=== PATIENT | female | born 1970 | race Caucasian/White ===

== ENCOUNTER → 2017-05-18 | Outpatient (CLI) | payer OTHER, BC ==
--- NOTE | 2017-05-18 17:25 | DIAGNOSTIC IMAGING REPORT ---
SACRUM COCCYX MIN 2 VIEWS CLINICAL HISTORY: FALL trauma. Pain. COMPARISON STUDY: None FINDINGS: Nondisplaced oblique vertical fracture sacrococcygeal junction. Sacral foramina are symmetric. Sacroiliac joints are unremarkable. An intrauterine device is present. IMPRESSION: Nondisplaced oblique cortical fracture sacrococcygeal junction joint evidence for early healing The above report was generated using voice recognition software. It may contain grammatical, syntax or spelling errors. Electronically signed by: Jason Jones M.D. 05/18/2017 5:24 PM Dictated Date/Time: 05/18/2017 5:22 PM
--- NOTE | 2017-05-18 17:26 | DIAGNOSTIC IMAGING REPORT ---
L SHOULDER MIN 2 VIEWS ROUTINE CLINICAL HISTORY: FALL,LT SHOULDER PAIN trauma. Pain. COMPARISON: None. DISCUSSION: The bones and joint spaces appear intact. There is no evidence of fracture, dislocation or bony disease. There is no evidence for soft tissue swelling. IMPRESSION: Negative study. No acute process. Localized degenerative cystic change lateral aspect humeral head The above report was generated using voice recognition software. It may contain grammatical, syntax or spelling errors. Electronically signed by: Jason Jones M.D. 05/18/2017 5:25 PM Dictated Date/Time: 05/18/2017 5:24 PM
== END | disposition home or self-care (01) ==
LOC: C.RAD1850 16:30
PROVIDERS: ATTEND Nurse Practitioner Adult Health
DX: M53.3 Sacrococcygeal disorders, not elsewhere classified (principal); M25.512 Pain in left shoulder

== ENCOUNTER → 2017-09-09 | Outpatient (CLI) | payer OTHER ==
--- NOTE | 2017-09-09 14:49 | DIAGNOSTIC IMAGING REPORT ---
SACRUM COCCYX MIN 2 VIEWS CLINICAL HISTORY: TAILBONE PAIN S/P FALL 05/14 trauma. Pain. COMPARISON STUDY: 05/18/2017 FINDINGS: No acute bony abnormality. Fractures previously described have healed. Sacral foramina are symmetric. IMPRESSION: No acute process. The above report was generated using voice recognition software. It may contain grammatical, syntax or spelling errors. Electronically signed by: Jason Jones M.D. 09/09/2017 2:48 PM Dictated Date/Time: 09/09/2017 2:46 PM
== END | disposition home or self-care (01) ==
LOC: C.RAD1850 14:32
PROVIDERS: ATTEND Nurse Practitioner Adult Health
DX: M53.3 Sacrococcygeal disorders, not elsewhere classified (principal); W19.XXXA Unspecified fall, initial encounter

== ENCOUNTER → 2017-11-15 | Outpatient (CLI) | payer OTHER ==
--- NOTE | 2017-11-15 11:53 | DIAGNOSTIC IMAGING REPORT ---
CHEST 2 VIEWS ROUTINE CLINICAL HISTORY: 46 years-old Female presenting with PRE OP. TECHNIQUE: PA and lateral views of the chest were obtained. COMPARISON: None. FINDINGS: Cardiomediastinal silhouette normal. Lungs and pleural spaces clear. Osseous structures normal. Upper abdomen normal. IMPRESSION: 1. No acute cardiopulmonary disease. Electronically signed by: Bubba Maharaj M.D. 11/15/2017 11:52 AM Dictated Date/Time: 11/15/2017 11:51 AM
[2017-11-15 12:40] LABS: BASO % 0.4 %; BASO ABS # 0.03 K/uL (0-0.2); EOS % 1.5 %; EOS ABS # 0.12 K/uL (0-0.5); HEMATOCRIT 42.6 % (37-47); HEMOGLOBIN 14.7 g/dL (12.0-16.0); IG# 0.01 K/uL (0.00-0.02); LYMPH % 32.9 %; LYMPH ABS # 2.64 K/uL (1.2-3.4); MEAN CELL VOLUME 89.7 fL (80-100); MEAN CORPUSCULAR HEMOGLOBIN 30.9 pg (25-34); MEAN CORPUSCULAR HGB CONC 34.5 g/dl (32-36); MEAN PLATELET VOLUME 11.9 fL (7.4-10.4); MONO % 6.5 %; MONO ABS # 0.52 K/uL (0.11-0.59); NEUT % 58.6 %; PLATELET COUNT 218 K/uL (130-400); RED CELL DISTRIBUTION WIDTH CV 12.8 % (11.5-14.5); RED CELL DISTRIBUTION WIDTH SD 42.3 fL (36.4-46.3); WHITE BLOOD COUNT 8.02 K/uL (4.8-10.8)
== END | disposition home or self-care (01) ==
LOC: C.RAD1850 11:26
PROVIDERS: ATTEND Orthopaedic Surgery Orthopaedic Surgery of the Spine
DX: Z01.812 Encounter for preprocedural laboratory examination (principal); Z01.818 Encounter for other preprocedural examination